=== PATIENT | male | born 1985 | race Caucasian/White ===

== ENCOUNTER 2019-04-20 20:53 | Emergency (ER) | payer OTHER ==
[~2019-04-20] VITALS: Ht 167.6 cm; Wt 68.0 kg
[2019-04-20 21:05] VITALS: BP 140/90
--- NOTE | 2019-04-20 21:08 | NUR ---
TO LOBBY A/W BED AMBULATORY
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
--- NOTE | 2019-04-20 23:42 | NUR ---
Patient ambulated to bed 3. RN evaluating patient at bedside.
--- NOTE | 2019-04-20 23:46 | NUR ---
Dr. Marie evaluating patient at bedside.
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
[2019-04-21] MEDS ORDERED: BACITRACIN OINT 500 UNITS/GM PKT TP ONE (00:09)
[2019-04-21 00:30] VITALS: BP 140/90
--- NOTE | 2019-04-21 00:36 | NUR ---
Patient discharged with v/s stable. Written and verbal after care instructions given and explained. Patient alert, oriented and verbalized understanding of instructions. Ambulatory with steady gait. All questions addressed prior to discharge. ID band removed. Patient advised to follow up with PMD. Rx of BACITRACIN WAS given. Patient educated on indication of medication including possible reaction and side effects. Opportunity to ask questions provided and answered.
== END 2019-04-21 00:30 | disposition home or self-care (01) ==
LOC: MED 20:53
DX: T24.211A Burn of second degree of right thigh, initial encounter (principal); T79.9XXA Unspecified early complication of trauma, initial encounter; X11.8XXA Contact with other hot tap-water, initial encounter; Y93.89 Activity, other specified; Y92.89 Other specified places as the place of occurrence of the external cause; Y99.8 Other external cause status
CPT/HCPCS: 16020; 99284